=== PATIENT | female | born 1985 | race Caucasian/White ===

== ENCOUNTER 2024-03-17 18:45 | Emergency (ER) | payer OTHER ==
[~2024-03-17] VITALS: Ht 154.9 cm; Wt 60.0 kg
[2024-03-17 19:08] VITALS: BP 124/68; PULSE 90; RESP 16; TEMP 98; O2SAT 100
[2024-03-17 20:45] LABS: BASOPHILS % 0.8 % (0.0-2.0); EOSINOPHILS % 5.9 % (0.0-5.0); HEMATOCRIT. 39.8 % (36.0-48.0); HEMOGLOBIN. 13.3 g/dL (12.0-16.0); LYMPHOCYTES % 19.7 % (20.0-50.0); MEAN CORPUSCULAR HEMOGLOBIN 30.5 pg (28.0-32.0); MEAN CORPUSCULAR HGB CONC 33.4 g/dL (31.0-37.0); MEAN CORPUSCULAR VOLUME 91.4 fL (81.0-99.0); MEAN PLATELET VOLUME 8.4 fl (7.4-10.4); MONOCYTES % 11.5 % (2.0-8.0); NEUTROPHILS % 62.1 % (40.0-76.0); PLATELET 243 x1000/uL (130-400); RED BLOOD CELL COUNT 4.36 mill/uL (4.2-5.4); WHITE BLOOD COUNT 6.1 x1000/uL (4.5-11.0)
[2024-03-17 20:58] LABS: CHLORIDE 108 mEq/L (98-107); POTASSIUM 3.5 mEq/L (3.5-5.1); SODIUM 142 mEq/L (136-145)
[2024-03-17 21:00] LABS: CARBON DIOXIDE 28 mEq/L (21-32)
[2024-03-17 21:01] LABS: CALCIUM 9.5 mg/dL (8.7-10.4)
[2024-03-17 21:05] LABS: CREATININE 0.7 mg/dL (0.6-1.0); GLUCOSE 96 mg/dL (70-105)
[2024-03-17 21:06] LABS: UREA NITROGEN BLOOD 13 mg/dL (9-23)
[2024-03-17 21:07] LABS: ALANINE AMINOTRANSFERASE 31 IU/L (10-49); ALBUMIN 4.3 g/dL (3.2-4.8); ASPARTATE AMINOTRANSFERASE 28 IU/L (<34)
[2024-03-17 21:08] LABS: BILIRUBIN DIRECT 0.1 mg/dL (<=3.0); BILIRUBIN TOTAL 0.5 mg/dL (0.1-1.0); PROTEIN TOTAL 6.7 g/dL (6.0-8.3)
[2024-03-17 21:23] LABS: HCG SCREEN NEGATIVE
[2024-03-17 21:36] LABS: CLARITY URINE CLEAR (CLEAR); COLOR URINE YELLOW (YELLOW); GLUCOSE URINE NEGATIVE (NEGATIVE); KETONES URINE NEGATIVE (NEGATIVE); LEUKOCYTE ESTERASE URINE NEGATIVE (NEGATIVE); NITRITE URINE NEGATIVE (NEGATIVE); OCCULT BLOOD URINE NEGATIVE (NEGATIVE); PROTEIN URINE NEGATIVE (NEGATIVE); SPECIFIC GRAVITY URINE 1.031 (1.005-1.030)
[2024-03-18] MEDS ORDERED: IBUP-2030 MT (01:21)
== END 2024-03-18 01:34 | disposition home or self-care (01) ==
LOC: ER 18:45
DX: R10.32 Left lower quadrant pain (principal)
CPT/HCPCS: 36415; 74176; 80048; 80076; 81003; 84703; 85025; 99284